=== PATIENT | female | born 1950 | race Hispanic/Latino ===

== ENCOUNTER 2018-08-09 11:24 | Emergency (ER) | payer OTHER | END 2018-08-09 13:13 | disposition home or self-care (01) | LOC: EDH 11:24 | DX: S13.4XXA Sprain of ligaments of cervical spine, initial encounter (principal); S33.5XXA Sprain of ligaments of lumbar spine, initial encounter; M43.16 Spondylolisthesis, lumbar region; E78.5 Hyperlipidemia, unspecified; E11.9 Type 2 diabetes mellitus without complications; V49.49XA Driver injured in collision with other motor vehicles in traffic accident, initial encounter; Y93.89 Activity, other specified; Y92.89 Other specified places as the place of occurrence of the external cause; Y99.8 Other external cause status | CPT/HCPCS: 72040; 72100 ==

== ENCOUNTER → 2019-10-16 | Outpatient (CLI) | payer OTHER | END | disposition home or self-care (01) | LOC: RAH 13:07 | PROVIDERS: ATTEND Internal Medicine | DX: M19.041 Primary osteoarthritis, right hand (principal); M79.89 Other specified soft tissue disorders; M85.841 Other specified disorders of bone density and structure, right hand; M19.011 Primary osteoarthritis, right shoulder | CPT/HCPCS: 73030; 73130 ==

== ENCOUNTER → 2020-11-24 | Outpatient (CLI) | payer OTHER | END | disposition home or self-care (01) | LOC: RAH 13:26 | PROVIDERS: ATTEND Nurse Practitioner Family | DX: S00.81XA Abrasion of other part of head, initial encounter (principal); M85.89 Other specified disorders of bone density and structure, multiple sites; M47.816 Spondylosis without myelopathy or radiculopathy, lumbar region; M89.8X8 Other specified disorders of bone, other site; M18.11 Unilateral primary osteoarthritis of first carpometacarpal joint, right hand; M19.011 Primary osteoarthritis, right shoulder; M47.814 Spondylosis without myelopathy or radiculopathy, thoracic region; X58.XXXA Exposure to other specified factors, initial encounter; Y93.89 Activity, other specified; Y92.89 Other specified places as the place of occurrence of the external cause; Y99.8 Other external cause status | CPT/HCPCS: 70150; 72072; 72100; 73030; 73130 ==

== ENCOUNTER 2022-03-16 05:33 | Day surgery (SDC) | payer MEDICARE ==
[2022-03-12 15:28] LABS: BASOPHILS % (AUTO) 0.4 % (0.0-5.0); EOSINOPHILS % (AUTO) 1.9 % (0.0-8.0); MEAN CORPUSCULAR HEMOGLOBIN 29.2 pg (27.0-33.0); MEAN CORPUSCULAR HGB CONC 33.3 g/dL (32.0-36.0); MEAN CORPUSCULAR VOLUME 87.7 fL (79-99); MONOCYTES % (AUTO) 8.5 % (3.0-13.0); NEUTROPHILS % (AUTO) 62.8 % (40.0-77.0); PLATELET COUNT (AUTO) 224 K/uL (130-400); RED BLOOD CELL COUNT(AUTO) 4.56 MIL/uL (4.00-5.50); RED CELL DISTRIBUTION WIDTH 12.7 % (11.0-15.5); WHITE BLOOD COUNT (AUTO) 4.8 K/uL (4.8-10.8)
[2022-03-12 15:34] LABS: CREATININE 0.8 mg/dL (0.5-1.5); POTASSIUM 3.3 mmol/L (3.5-5.1)
[2022-03-12 15:37] LABS: INR 0.93 (0.85-1.15); PROTHROMBIN TIME 10.2 SEC (9.6-11.6)
[2022-03-12 15:38] LABS: PARTIAL THROMBOPLASTIN TIME 27.8 SEC (26.3-35.5)
[2022-03-12 15:59] LABS: APPEARANCE,URINE CLEAR (CLEAR); BILIRUBIN,URINE NEGATIVE (NEGATIVE); COLOR,URINE YELLOW (YELLOW); GLUCOSE, URINE (UA) NEGATIVE (NEGATIVE); KETONES,URINE NEGATIVE (NEGATIVE); LEUKOCYTE ESTERASE ,URINE 500 Leu/uL (NEGATIVE); NITRATE,URINE NEGATIVE (NEGATIVE); OCCULT BLOOD,URINE NEGATIVE (NEGATIVE); PH,URINE 5.5 (5.0-8.0); PROTEIN,URINE 10 mg/dL (NEGATIVE); UROBILINOGEN,URINE 0.2 mg/dL (0.2-1.0)
[2022-03-12 16:05] LABS: BACTERIA,URINE RARE /HPF (None Seen); MUCUS,URINE FEW LPF (None Seen); SQUAMOUS EPITHELIAL CELL,UR MOD /HPF (0-2); WBC,URINE 51-100 /HPF (0-1)
[2022-03-15 08:55] VITALS: BP 153/72
[2022-03-16] VITALS (21 sets, daily range): BP systolic 113–162; BP diastolic 52–85
[~2022-03-16] VITALS: Ht 152.4 cm; Wt 100.0 kg
[~2022-03-16 05:33] MED LIST: ASCO500T96 PO; ATOR10TA69 PO; CALC-1009 PO; CHOL100040 PO; FISH1CAP20 PO; HYDR25TA PO; MIRA25TA PO; MV-M1TAB45 PO; VITA-395 PO; vitamin b12 PO
[2022-03-16] MEDS ORDERED: 0.9%NACL 1000ML 1,000 ML IV ONE (05:40)
[2022-03-16] MEDS ORDERED: MIDAZOLAM HCL 1 MG/ML 2ML VIAL ONE (06:29)
[2022-03-16] MEDS ORDERED: PROPOFOL 10 MG/ML 20ML VIAL IV ONE (06:30)
[2022-03-16] MEDS ORDERED: FENTANYL CITRATE PF 50 MCG/1 ML 2ML VIAL ONE (06:32)
[2022-03-16] MEDS ORDERED: DEXAMETHASONE SOD PHOSPHATE 4 MG/ML 1ML VIAL ONE (06:35)
[2022-03-16] MEDS ORDERED: ONDANSETRON 4MG INJ ONE ×2 (06:36→07:45)
[2022-03-16] MEDS ORDERED: KETOROLAC 30MG VIAL (30MG/ML) ONE (06:36)
[2022-03-16] MEDS ORDERED: POTASSIUM CHLORIDE IV SCH (07:30)
[2022-03-16] MEDS ORDERED: NACL 0.9% IV SCH (07:30)
[2022-03-16] MEDS ORDERED: MEPERIDINE-PF 25 MG/ML SYG ONE (07:44)
[2022-03-16] MEDS ORDERED: GLYCOPYRROLATE 1 MG/5 ML SYRINGE ONE (10:00)
== END 2022-03-16 11:00 | disposition home or self-care (01) ==
LOC: DAH 05:33
PROVIDERS: ATTEND Obstetrics & Gynecology
DX: N95.0 Postmenopausal bleeding (principal); Z20.822 Contact with and (suspected) exposure to COVID-19; N85.02 Endometrial intraepithelial neoplasia [EIN]; L28.0 Lichen simplex chronicus; M81.0 Age-related osteoporosis without current pathological fracture; I10 Essential (primary) hypertension; E66.01 Morbid (severe) obesity due to excess calories; E11.9 Type 2 diabetes mellitus without complications; Z68.41 Body mass index [BMI] 40.0-44.9, adult; Z83.3 Family history of diabetes mellitus; Z79.899 Other long term (current) drug therapy
CPT/HCPCS: 80048; 85025; 85610; 85730; 86850 ×2; 86900 ×2; 86901 ×2; 87088; 87426; 81001; 36415 ×2; 93005; 58558; 82948 ×2; 88305; A6260; J1100; A4663; J7030 ×2; A4351; J3010; J3490; J2250; J2704; J2405 ×2; J1885; J2175; J3480; J7050; A4215; A4223; A4222; A4221; A4600

== ENCOUNTER → 2022-08-11 | Outpatient (CLI) | payer MEDICARE | END | disposition home or self-care (01) | LOC: RAH 09:09 | DX: Z01.812 Encounter for preprocedural laboratory examination (principal); I51.7 Cardiomegaly | CPT/HCPCS: 71046 ==